=== PATIENT | female | born 1945 | race African-American/Black ===

== ENCOUNTER 2018-08-07 15:20 | Emergency (ER) | payer OTHER ==
[~2018-08-07] VITALS: Ht 170.2 cm; Wt 81.7 kg
[~2018-08-07 15:20] MED LIST: ACCUNEB SO1.25 MG/1; ALBUTEROL2.5 MG/31 INH; AMLODIPINE BESY10 MG; ASPIRIN EC81 M1 PO; AVELOX 400 MG400 MG OR; CARAFATE 1 GM TA1 G1; CARAFATE 1 GM TA1 G1 OR; CELEXA 20 MG TA20 MG; COMBIVENT RESPIM4 GM INH; DESYREL100 MG PO; DESYREL50 MG PO; DILTIAZEM 24HR240 MG OR; DILTIAZEM ER240 M1; FLEXERIL PO; FUROSEMIDE 40 M40 MG OR; HCTZ; HYDRALAZINE 10M10 MG PO; KEFLEX500 MG PO; LASIX 20 MG TAB20 MG PO; LASIX 40 MG TAB40 M1 PO; LISINOPRIL20 MG PO; LISINOPRIL40 MG OR; LISINOPRIL40 MG PO; MEDROLDOSEPACK PO; NEURONTIN 300300 M1 PO; NEURONTIN 300M300 M2 PO; NORCO 5-325 TA1 EACH PO; NORCO 7.5-3251 EACH; OMEPRAZOLE20 M2 OR; OXYCODON-ACETA1 EAC1 PO; OXYCODONE-APAP1 EAC4 OR; PERCOCET 5-3251 EACH PO; POTASSIUM20 OR; POTASSIUM20 PO; REMERON15 MG PO; ROBAXIN500 MG PO; TOPROL XL100 MG OR; TOPROL XL25 MG PO; TOPROL XL50 MG PO; TRAMADOL 50 MG50 MG PO
[2018-08-07] MEDS ORDERED: LISINOPRIL20 MG PO (15:26)
[2018-08-07 17:00] LABS: ABSOLUTE NEUTROPHILS 2.2 thou/uL (1.4-8.2); BASOPHILS 1.1 % (0.0-2.0); EOSINOPHILS 3.3 % (0.0-3.0); HEMATOCRIT 35.9 % (37.0-47.0); HEMOGLOBIN 12.1 gm/dL (12.0-15.0); LYMPHOCYTES 54.3 % (24.0-44.0); MCHC 33.8 g/dL (28.0-37.0); MCV 88.9 fL (80.0-100.0); MONOCYTES 10.4 % (1.0-8.0); PLATELET COUNT 133 thou/uL (150-400); POLYS 30.9 % (36.0-66.0); RBC 4.04 mil/uL (4.20-5.00); RDW 13.9 % (10.5-14.5); WBC 7.1 thou/uL (4.0-11.0)
[2018-08-07 17:07] LABS: CALCIUM 8.8 mg/dL (8.5-10.1); CREATININE 0.7 mg/dL (0.6-1.0); POTASSIUM 4.1 mmol/L (3.5-5.1)
[2018-08-07 17:13] LABS: TOTAL BILIRUBIN 0.3 mg/dL (<0.1-1.0); TOTAL PROTEIN 6.9 g/dL (6.4-8.2)
[2018-08-07 17:16] LABS: PROTIME 10.7 Seconds (9.3-11.4)
[2018-08-07] MEDS ORDERED: BUTALB-APAP-CA1 EACH PO (19:45)
[2018-08-07 19:55] VITALS: BP 183/81
== END 2018-08-07 20:14 | disposition home or self-care (01) ==
LOC: ER 15:20
PROVIDERS: Physician Assistant
DX: G43.909 Migraine, unspecified, not intractable, without status migrainosus (principal); I11.0 Hypertensive heart disease with heart failure; I50.9 Heart failure, unspecified; Z87.891 Personal history of nicotine dependence

== ENCOUNTER 2018-11-03 14:16 | Emergency (ER) | payer OTHER ==
[~2018-11-03] VITALS: Ht 170.2 cm; Wt 83.9 kg
[~2018-11-03 14:16] MED LIST changes: +BUTALB-APAP-CA1 EACH PO
[2018-11-03] MEDS ORDERED: ZANTAC 150MG T150 MG PO (14:36)
[2018-11-03 16:50] VITALS: BP 151/74
== END 2018-11-03 16:51 | disposition home or self-care (01) ==
LOC: ER 14:16
DX: S16.1XXA Strain of muscle, fascia and tendon at neck level, initial encounter (principal); S09.90XA Unspecified injury of head, initial encounter; M25.511 Pain in right shoulder; M25.551 Pain in right hip; I11.0 Hypertensive heart disease with heart failure; I50.9 Heart failure, unspecified; Z87.891 Personal history of nicotine dependence; W01.198A Fall on same level from slipping, tripping and stumbling with subsequent striking against other object, initial encounter; Y93.89 Activity, other specified; Y92.89 Other specified places as the place of occurrence of the external cause; Y99.8 Other external cause status

== ENCOUNTER 2019-01-24 14:10 | Emergency (ER) | payer OTHER ==
[~2019-01-24] VITALS: Ht 170.2 cm; Wt 78.5 kg
[~2019-01-24 14:10] MED LIST changes: +ZANTAC 150MG T150 MG PO
[2019-01-24] MEDS ORDERED: CYCLOBENZAPRINE5 MG PO (15:44)
[2019-01-24] MEDS ORDERED: NORCO 5-325 TA1 EAC1 PO (15:44)
[2019-01-24 16:00] VITALS: BP 172/88
== END 2019-01-24 16:00 | disposition home or self-care (01) ==
LOC: ER 14:10
DX: S16.1XXA Strain of muscle, fascia and tendon at neck level, initial encounter (principal); G44.209 Tension-type headache, unspecified, not intractable; M25.569 Pain in unspecified knee; I11.0 Hypertensive heart disease with heart failure; I50.9 Heart failure, unspecified; G89.29 Other chronic pain; M54.5 Low back pain; Z87.891 Personal history of nicotine dependence; X58.XXXA Exposure to other specified factors, initial encounter; Y92.89 Other specified places as the place of occurrence of the external cause; Y93.89 Activity, other specified; Y99.8 Other external cause status

== ENCOUNTER → 2020-11-15 | Outpatient (CLI) | payer OTHER ==
[~2020-11-15] MED LIST changes: +CYCLOBENZAPRINE5 MG PO; +NORCO 5-325 TA1 EAC1 PO
== END ==
LOC: RAD 14:14
PROVIDERS: ATTEND Internal Medicine
DX: S92.341A Displaced fracture of fourth metatarsal bone, right foot, initial encounter for closed fracture (principal); S92.331A Displaced fracture of third metatarsal bone, right foot, initial encounter for closed fracture; S92.321A Displaced fracture of second metatarsal bone, right foot, initial encounter for closed fracture; M20.11 Hallux valgus (acquired), right foot; M79.89 Other specified soft tissue disorders; X58.XXXA Exposure to other specified factors, initial encounter; Y93.89 Activity, other specified; Y92.89 Other specified places as the place of occurrence of the external cause; Y99.8 Other external cause status

== ENCOUNTER 2021-04-27 11:12 | Emergency (ER) | payer OTHER ==
[~2021-04-27] VITALS: Ht 170.2 cm; Wt 81.7 kg
[2021-04-27] MEDS ORDERED: NORCO5 PO (16:04)
[2021-04-27 19:19] VITALS: BP 169/80
== END 2021-04-27 17:57 | disposition home or self-care (01) ==
LOC: ER 11:12
DX: S01.01XA Laceration without foreign body of scalp, initial encounter (principal); S39.012A Strain of muscle, fascia and tendon of lower back, initial encounter; I11.0 Hypertensive heart disease with heart failure; I50.9 Heart failure, unspecified; Z79.82 Long term (current) use of aspirin; Z79.1 Long term (current) use of non-steroidal anti-inflammatories (NSAID); Z79.899 Other long term (current) drug therapy; Z79.891 Long term (current) use of opiate analgesic; Z87.891 Personal history of nicotine dependence; W18.11XA Fall from or off toilet without subsequent striking against object, initial encounter; Y93.89 Activity, other specified; Y92.002 Bathroom of unspecified non-institutional (private) residence as the place of occurrence of the external cause; Y99.8 Other external cause status